=== PATIENT | female | born 1985 | race Caucasian/White ===

== ENCOUNTER 2020-01-30 20:22 | Emergency (ER) | payer MEDICAID, SELFPAY ==
[2020-01-30 20:35] VITALS: BP 111/69; PULSE 81; RESP 16; TEMP 36.6; O2SAT 98; BMI 26.9
[2020-01-30 21:00] LABS: Microscopic, Urine URINE MICROSCOPIC (MICROSCOPIC)
[2020-01-30 21:09] LABS: Basophils # 0.1 K/mm3 (0-0.2); Basophils % 0.9 % (0.1-2.0); Eosinophils # 0.7 K/mm3 (0.0-0.4); Hematocrit 37.2 % (37.0-47.0); Mean Corpuscular Hemoglobin 33.4 pg (27.0-31.2); Mean Corpuscular Volume 95.5 fl (81-99); Mean Platelet Volume 8.4 fl (7.4-10.4); Monocytes # 0.4 K/mm3 (0.1-1.0); Monocytes % 4.5 % (1.7-9.3); Neutrophils # 3.9 K/mm3 (1.8-7.8); Neutrophils % 48.6 % (37.0-80.0); Platelet Count 239 K/mm3 (142-424); Red Blood Count 3.89 M/mm3 (4.20-5.40); Red Cell Distribution Width 12.6 % (11.5-17.5); White Blood Count 8.1 K/mm3 (4.8-10.8)
[2020-01-30 21:12] LABS: Alanine Aminotransferase 16 U/L (12-78); Albumin Level 4.6 g/dl (3.5-5.0); Albumin/Globulin Ratio 1.4 (1.1-1.8); Alkaline Phosphatase 51 U/L (38-126); Anion Gap 10.8 mEq/L (5-15); Aspartate Amino Transferase 27 U/L (14-36); Bilirubin,Total 0.2 mg/dl (0.2-1.3); Blood Urea Nitrogen 9 mg/dl (7-17); Calcium 9.2 mg/dl (8.4-10.2); Carbon Dioxide 26 mmol/L (22.0-30.0); Chloride 104 mmol/L (98-107); Creatinine Clearance Estimated 122 mL/min (50-200); Estimated Glomerular Filt Rate 95 ml/min (>60); GFR (African American) 115 ML/MIN (>60); Globulin 3.2 g/dL (1.3-3.2); Glucose 123 mg/dl (74-100); Potassium 3.8 mmoL/L (3.5-5.1); Sodium 137 mmol/L (136-145); Total Protein,Serum 7.8 g/dl (6.3-8.2)
[2020-01-30 21:18] LABS: C-Reactive Protein 0.8 mg/L (0-4)
[2020-01-30 21:20] LABS: Appearance,Urine SL CLOUDY (Clear); Bilirubin,Urine Negative (Negative); Blood, Urine 1+ (Negative); Color,Urine YELLOW (Yellow); Glucose,Urine (UA) Negative (Negative); Ketones,Urine TRACE (Negative); Leukocyte Esterase,Urine 1+ (Negative); Nitrate,Urine Negative (Negative); Protein,Urine Negative (Negative); Specific Gravity, Urine >= 1.030 (1.005-1.030); Urobilinogen,Urine 0.2 EU/dl (0.2)
[2020-01-30 21:23] LABS: Urine Pregnancy, HCG Qual. Negative (Negative)
[2020-01-30 21:28] LABS: Coronavirus 19 IgG Antibody Negative (Negative); Coronavirus 19 IgM Antibody Negative (Negative)
[2020-01-30 21:32] LABS: Erythrocyte Sedimentation Rate 19 mm/hr (0-20); Free Thyroxine Index 2.6 ug/dL (5.93-13.13); T4 (Thyroxine) 8.5 ug/dl (5.53-11.0); Triiodothryronine (T3) Uptake 30 % (23.5-40.5)
[2020-01-30 21:45] LABS: Thyroid Stimulating Hormone 2.31 uIU/mL (0.465-4.68)
--- NOTE | 2020-01-30 22:18 | HMH.EDGENADL ---
ED Disposition Clinical Impression: UTI (urinary tract infection) Qualifiers: Urinary tract infection type: site unspecified Hematuria presence: without hematuria Qualified Code(s): N39.0 - Urinary tract infection, site not specified Disposition: Home, Self-Care Condition on Discharge: Good Instructions: DI for Skin Abscess Additional Instructions: use meds and see pcp for follow up Prescriptions: cephALEXin [Keflex 500mg Cap] 500 mg PO TID #30 cap Prescription Printed Referrals: Amilcar Carlos MD [Primary Care Provider] - - Critical Care Critical Care Time: No Attestation: On 01/30/20, the high probability of a clinically significant, sudden or life threatening deterioration of the following system(s) required my full and direct attention, intervention and personal management. The time I documented below is in addition to time spent performing reported procedures but includes the following listed in this critical care notation. Medical Decision Making - Medical Records Medical records reviewed: Yes: I reviewed the patient's medical records. - Masoud Inquiry Pt receiving controlled substance: No Vital Signs: 01/30/20 20:35 Temperature 97.8 F Temperature Source Oral Pulse Rate [Right Brachial] 81 Respiratory Rate 16 Blood Pressure [Right Arm] 111/69 Blood Pressure Mean [Right Arm] 83 Blood Pressure Source [Right Arm] Automatic Cuff Blood Pressure Position [Right Arm] Sitting 02 Sat by Pulse Oximetry 98 Oxygen Delivery Method Room Air - Lab Data Lab results reviewed: Yes: I reviewed the patient's lab results. Lab Results 01/30/20 20:40: WBC 8.1, RBC 3.89 L, Hgb 13.0, Hct 37.2, MCV 95.5, MCH 33.4 H, MCHC 35.0, RDW 12.6, Plt Count 239, MPV 8.4, Neut % (Auto) 48.6, Lymph % (Auto) 37.0, [place] % (Auto) 4.5, Eos % (Auto) 9.0, Baso % (Auto) 0.9, Neut # (Auto) 3.9, Lymph # (Auto) 3.0, [place] # (Auto) 0.4, Eos # (Auto) 0.7 H, Baso # (Auto) 0.1 01/30/20 20:40: Urine HCG, Qual Negative 01/30/20 20:40: Sodium 137, Potassium 3.8, Chloride 104, Carbon Dioxide 26, Anion Gap 10.8, BUN 9, Creatinine 0.70, Estimated Creat Clear 122, Estimated GFR 95, Est GFR ( Amer) 115, Glucose 123 H, Calcium 9.2, Total Bilirubin 0.2, AST 27, ALT 16, Alkaline Phosphatase 51, C-Reactive Protein 0.8, Total Protein 7.8, Albumin 4.6, Globulin 3.2, Albumin/Globulin Ratio 1.4 01/30/20 20:40: TSH 2.31, Free T4 Index 2.6 L, Thyroxine (T4) 8.5, T3 Uptake 30 01/30/20 20:40: ESR 19 01/30/20 20:46: SARS-CoV-2 IgG Ab (Rapid) Negative, SARS-CoV-2 IgM Ab (Rapid) Negative 01/30/20 20:49: Urine Color Yellow, Urine Appearance Sl cloudy, Urine pH 5.0, Ur Specific [place] >= 1.030, Urine Protein Negative, Urine Glucose (UA) Negative, Urine Ketones Trace, Urine Blood 1+, Urine Nitrate Negative, Urine Bilirubin Negative, Urine Urobilinogen 0.2, Ur Leukocyte Esterase 1+ A, Urine RBC 5-10, Urine WBC 10-20, Ur Squamous Epith Cells 5-10 Result diagrams: 01/30/20 20:40 01/30/20 20:40 Orders (Tests/Meds): ORDERS Category Date Time Status Urine Culture Stat Micro 01/30/20 20:49 Received General Adult HPI - General Chief complaint: Skin/Abscess/Foreign Body Stated complaint: retaining fluid Time Seen by Provider: 01/30/20 20:40 Mode of Arrival: Family Vehicle Source of Information: Patient, Medical Record Limitations: No Limitations Description of Symptoms (Recalled from ER Triage Doc. by RN): feels like she is swollen all over her body. wants to be evaluated. no previous history - History of Present Illness HPI narrative: pt concerned about possible swelling in abd - no pain - no other c/o Onset (ago): day(s) Location: abdomen Severity: moderate Associated symptoms: denies other symptoms Treatments prior to arrival: none - Related Data Previous Rx's Medication Instructions Recorded cephALEXin [Keflex 500mg Cap] 500 mg PO TID #30 cap 01/30/20 Allergies Allergy/AdvReac Type Severity Reaction Status Date / Time NO ABA
[2020-01-30 22:34] VITALS: BP 119/74; PULSE 73; RESP 15; TEMP 36.7; O2SAT 98
== END 2020-01-30 22:44 | disposition home or self-care (01) ==
PROVIDERS: Emergency Provider Emergency Medicine; PCP Family Medicine
DX: N30.00 Acute cystitis without hematuria (principal)
CPT/HCPCS: 80053; 81001; 81025; 84436; 84443; 84479; 85025; 85651; 86140; 86328; 87086; 99282

== ENCOUNTER 2020-05-13 16:14 | Emergency (ER) | payer MEDICAID, SELFPAY ==
[2020-05-13 16:16] VITALS: BP 136/71; PULSE 64; RESP 18; TEMP 36.7; O2SAT 100; BMI 26.5
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
--- NOTE | 2020-05-13 16:42 | PC.NURSE ---
Pt to rad.
[2020-05-13 19:01] VITALS: BP 132/85; PULSE 87; RESP 18; TEMP 36.8; O2SAT 100
== END 2020-05-13 19:02 | disposition home or self-care (01) ==
PROVIDERS: Emergency Provider Emergency Medicine; PCP Family Medicine
DX: S16.1XXA Strain of muscle, fascia and tendon at neck level, initial encounter (principal); S09.90XA Unspecified injury of head, initial encounter; V48.0XXA Car driver injured in noncollision transport accident in nontraffic accident, initial encounter; Y92.488 Other paved roadways as the place of occurrence of the external cause
CPT/HCPCS: 70450; 72125; 72128; 99282

== ENCOUNTER 2020-06-10 09:28 | Emergency (ER) | payer MEDICAID, SELFPAY ==
[2020-06-10 09:55] VITALS: BP 122/84; PULSE 66; RESP 18; TEMP 37.1; O2SAT 99; BMI 26.5
--- NOTE | 2020-06-10 10:06 | HMH.EDUTC ---
[facility] Disposition Clinical Impression: Dental abscess Disposition: Home, Self-Care Condition on Discharge: Good Instructions: Tooth Abscess, Amoxicillin and Clavulanic Acid Additional Instructions: Start antibiotic and take as prescribed Over the counter Motrin may help with discomfort Return if needed Call Dentist office on Friday for appointment Straight to ER if any life threatening symptoms Prescriptions: Amoxicillin/Potassium Clav [Augmentin 875-125 Tablet] 1 tab PO Q12H 7 Days #14 tab Transmission Status: Pending to [id number] Referrals: Amilcar Carlos MD [Primary Care Provider] - Forms: Work/School Release Time of Disposition: 10:13 Medical Decision Making - Masoud Inquiry Pt receiving controlled substance: No Masoud was queried for this patient: No Vital Signs: 06/10/20 09:55 Temperature 98.7 F Temperature Source Oral Pulse Rate [Radial] 66 Respiratory Rate 18 Blood Pressure [Right Arm] 122/84 Blood Pressure Mean [Right Arm] 96 Blood Pressure Source [Right Arm] Automatic Cuff Blood Pressure Position [Right Arm] Sitting 02 Sat by Pulse Oximetry 99 Oxygen Delivery Method Room Air [facility] HPI - General Stated complaint: right size face swollen possible abcess Time Seen by Provider: 06/10/20 10:06 Mode of Arrival: Ambulatory Source of Information: Patient Limitations: No Limitations Description of Symptoms (Recalled from Triage Doc. by RN): abcessed tooth x 2 months HEENT Symptoms (Recalled from RN notes): Yes Resp Symptoms (Recalled from RN notes): No Skin Symptoms (Recalled from RN notes): No MS Symptoms (Recalled from RN notes): No Functional Status (Recalled from RN notes): wnl - History of Present Illness Provider Complaint: Patient state that she has had a bad tooth States that she noticed over the last couple of days it was starting to act up States that today she woke up and the right side of her jaw/face was swollen and she knew she had an abcessed tooth and it is the weekend so she couldnt get into the dentist - Related Data Previous Rx's Medication Instructions Recorded cephALEXin [Keflex 500mg Cap] 500 mg PO TID #30 cap 01/30/20 Amoxicillin/Potassium Clav 1 tab PO Q12H 7 Days #14 tab 06/10/20 [Augmentin 875-125 Tablet] Allergies Allergy/AdvReac Type Severity Reaction Status Date / Time NO KNOWN ALLERGIES Allergy Uncoded 07/15/17 15:25 - Worker's Comp Is this a Worker's Comp case?: No [facility] History - Hepatitis A Screen Drug use history?: No High risk sexual behaviors?: No History of sexually transmitted infection?: No Currently employed?: No Childcare worker?: No Do you have indoor plumbing?: Yes Do you have electricity?: Yes Attestation statement:: This patient has been screened for Hepatitis A risk factors. I have reviewed the patient's past medical history: Yes - Social History Alcohol Intake: never Occupational Status: other Housing: house ROS Obtained: Yes All systems reviewed & no additional complaints, Yes Systems reviewed as appropriate & no additional complaints - Constitutional Constitutional: Reports system reviewed and no additional complaints, except as docu - ENT Ears, Nose, Mouth, and Throat: Reports dental pain Physical Exam - General General appearance: alert, in no apparent distress - Expanded ENT Exam Mouth exam: Present: other (multiple decaying teeth noted on right upper jaw area) - Respiratory Respiratory exam: Present: normal lung sounds bilaterally. Absent: respiratory distress - Cardiovascular Cardiovascular exam: Present: regular rate, normal rhythm. Absent: JVD - Abdominal Exam Abdominal exam: Present: soft, normal bowel sounds. Absent: distention, tenderness, guarding - Neurological Exam Neurological exam: Present: alert, oriented X3
[2020-06-10 10:18] VITALS: BP 122/84; PULSE 66; RESP 18; TEMP 37.1; O2SAT 99
== END 2020-06-10 10:19 | disposition home or self-care (01) ==
PROVIDERS: Emergency Provider Nurse Practitioner; PCP Family Medicine
DX: K04.7 Periapical abscess without sinus (principal)
CPT/HCPCS: 99201

== ENCOUNTER 2021-03-22 18:37 | Emergency (ER) | payer MEDICAID, SELFPAY ==
[2021-03-22 21:38] VITALS: BP 134/71; PULSE 76; RESP 18; TEMP 36.8; O2SAT 98; BMI 25.6
[2021-03-22 22:14] LABS: Adenovirus,PCR Not Detected (NotDetected); Bordetella Pertussis Not Detected (NotDetected); Chlamydophila Pneumoniae, PCR Not Detected (NotDetected); Coronavirus 19, PCR Not Detected (NotDetected); Coronavirus 229E Not Detected (NotDetected); Coronavirus NL63 Not Detected (NotDetected); Coronavirus OC43 Not Detected (NotDetected); Coronovirus HKU1,PCR Not Detected (NotDetected); Human Metapneumovirus Not Detected (NotDetected); Influenza A, PCR Not Detected (NotDetected); Influenza AH1, 2009 Not Detected (NotDetected); Influenza AH1, PCR Not Detected (NotDetected); Influenza AH3,PCR Not Detected (NotDetected); Influenza B, PCR Not Detected (NotDetected); Mycoplasma Pneumoniae, PCR Not Detected (NotDetected); Parainfluenza 1, PCR Not Detected (NotDetected); Parainfluenza 2, PCR Not Detected (NotDetected); Parainfluenza 3, PCR Not Detected (NotDetected); Parainfluenza 4, PCR Not Detected (NotDetected); Respiratory Syncytial Virus Not Detected (NotDetected); Rhinovirus/Enterovirus Not Detected (NotDetected)
[2021-03-22 22:15] VITALS: BP 136/75; PULSE 83; RESP 17; TEMP 36.6; O2SAT 98
--- NOTE | 2021-03-22 22:38 | HMH.EDUTC ---
[facility] Disposition Clinical Impression: Close exposure to COVID-19 virus Disposition: Home, Self-Care Condition on Discharge: Good Instructions: DI for COVID-19 (Suspected or Confirmed ), Coronavirus Disease 2019, Preventing the Spread of Coronavirus Discharge Instructions Additional Instructions: *Monitor Temp, Over the counter Motrin or Tylenol as directed/as needed Tylenol every 4 hours and Motrin every 6 hours (as long as your family doctor has told you that you can take it) for fever or pain. and straight to ER if unable to lower temp less than 101.0 after medication given Follow up IMMEDIATELY for new or worsening symptoms or no Noticeable improvement over the next 48-72 hours. 911 for difficulty breathing or swallowing You were tested for today for COVID19 your test result should be back in the next 24-48 hours, you may call to the [facility] to see if your test results are back in the next 48 hours [phone] [facility] hours are 9am-9pm You was given a handout with instructions for Self Quarantine and Self isolation for while you wait on test results and what to do if they are positive If you are positive the Health Dept will be contacting you also Make sure to take your Vitamins Vit. C Vit D and Zinc if you can take them Referrals: Amilcar Carlos MD [Primary Care Provider] - As needed Forms: Work/School Release Time of Disposition: 22:40 Medical Decision Making - Masoud Inquiry Pt receiving controlled substance: No Masoud was queried for this patient: No Vital Signs: 03/22/21 21:38 Temperature 98.2 F Temperature Source Oral Pulse Rate [Right] 76 Respiratory Rate 18 Blood Pressure [Right Arm] 134/71 Blood Pressure Mean [Right Arm] 92 02 Sat by Pulse Oximetry 98 Orders (Tests/Meds): ORDERS Category Date Time Status Full Resp Panel w/COVID ([facility]) Routine Lab 03/22/21 21:45 Received [facility] HPI - General Stated complaint: covid test Time Seen by Provider: 03/22/21 22:38 Mode of Arrival: Family Vehicle Source of Information: Patient Limitations: No Limitations Description of Symptoms (Recalled from Triage Doc. by RN): Patient reports she is here for a COVID test. Denies any symptoms HEENT Symptoms (Recalled from RN notes): No Resp Symptoms (Recalled from RN notes): No Skin Symptoms (Recalled from RN notes): No MS Symptoms (Recalled from RN notes): No Functional Status (Recalled from RN notes): na - History of Present Illness Provider Complaint: Patient states that she wanted to get tested for COVID state that she was recently around someone that tested positive for COVID but she is not having any symptoms - Related Data Previous Rx's Medication Instructions Recorded cephALEXin [Keflex 500mg Cap] 500 mg PO TID #30 cap 01/30/20 Amoxicillin/Potassium Clav 1 tab PO Q12H 7 Days #14 tab 06/10/20 [Augmentin 875-125 Tablet] Allergies Allergy/AdvReac Type Severity Reaction Status Date / Time NO KNOWN ALLERGIES Allergy Uncoded 07/15/17 15:25 - Worker's Comp Is this a Worker's Comp case?: No Is this an [facility] Worker's Comp?: No Is this a [place] Worker's Comp?: No [facility] History - Hepatitis A Screen Drug use history?: No High risk sexual behaviors?: No History of sexually transmitted infection?: No Currently employed?: No Childcare worker?: No Do you have indoor plumbing?: Yes Do you have electricity?: Yes Attestation statement:: This patient has been screened for Hepatitis A risk factors. I have reviewed the patient's past medical history: Yes - Social History Alcohol Intake: never Occupational Status: other Housing: house ROS Obtained: Yes All systems reviewed & no additional complaints, Yes Systems reviewed as appropriate & no additional complaints - Constitutional Constitutional: Reports system reviewed and no additional complaints, except as docu, Denies body ache, Denies chills, Denies fever(s) - ENT Ears, Nose, Mouth, and Throat: Reports system reviewed and no elvira
== END 2021-03-22 22:50 | disposition home or self-care (01) ==
PROVIDERS: Emergency Provider Nurse Practitioner; PCP Family Medicine
DX: Z20.822 Contact with and (suspected) exposure to COVID-19 (principal)
CPT/HCPCS: 87581; 87633; 87798; 99202; G0463

== ENCOUNTER 2022-01-05 12:23 | Emergency (ER) | payer MEDICAID, SELFPAY ==
[2022-01-05 12:53] VITALS: BMI 25.6
--- NOTE | 2022-01-05 12:54 | XR_ITS ---
PROCEDURE INFORMATION: Exam: XR Chest Exam date and time: 01/05/2022 1:37 PM Age: 36 years old Clinical indication: Cough and shortness of breath; Additional info: Cough, SOB TECHNIQUE: Imaging protocol: XR of the chest. Views: 2 views. COMPARISON: CT THORACIC SPINE WO CON 05/13/2020 4:55 PM FINDINGS: Airway: Patent Lungs: Unremarkable. No consolidation. Pleural spaces: Unremarkable. No pleural effusion. No pneumothorax. Heart/Mediastinum: Unremarkable. No cardiomegaly. Bones/joints: No acute skeletal abnormality or aggressive osseous lesion. IMPRESSION: No acute findings.
[2022-01-05 12:58] VITALS: BP 130/85; PULSE 96; RESP 16; TEMP 36.8; O2SAT 97; BMI 25.6
[2022-01-05 13:00] LABS: Coronavirus 19, PCR Not Detected (NotDetected); Influenza A, PCR Not Detected (NotDetected); Influenza B, PCR Not Detected (NotDetected)
--- NOTE | 2022-01-05 13:05 | HMH.EDGENADL ---
ED Disposition Clinical Impression: Viral upper respiratory infection Right otitis media Qualifiers: Otitis media type: suppurative Chronicity: acute Recurrence: not specified as recurrent Spontaneous tympanic membrane rupture: without spontaneous rupture Qualified Code(s): H66.001 - Acute suppurative otitis media without spontaneous rupture of ear drum, right ear Sinusitis Qualifiers: Sinusitis location: unspecified location Chronicity: acute Recurrence: not specified as recurrent Qualified Code(s): J01.90 - Acute sinusitis, unspecified Disposition: Home, Self-Care Condition on Discharge: Good Instructions: DI for Sinusitis, DI for Middle Ear Infection-Adult, DI for Viral Upper Respiratory Infection -- Adult Additional Instructions: Amoxicillin as prescribed. Tessalon as needed for cough. Ibuprofen or Tylenol as needed for pain or fevers. Follow-up with primary care provider if not improving in 4 to 5 days. Prescriptions: Amoxicillin [Amoxicillin 500mg Cap] 500 mg PO TID #30 cap Transmission Status: Pending to [facility] Benzonatate [Benzonatate 100mg cap] 100 mg PO TIDP PRN #15 cap PRN Reason: Cough Transmission Status: Pending to [facility] Referrals: Provider,Referral, [Referring] - - Critical Care Critical Care Time: No Attestation: On 01/05/22, the high probability of a clinically significant, sudden or life threatening deterioration of the following system(s) required my full and direct attention, intervention and personal management. The time I documented below is in addition to time spent performing reported procedures but includes the following listed in this critical care notation. Medical Decision Making - Masoud Inquiry Pt receiving controlled substance: No Vital Signs: 01/05/22 12:58 Temperature 98.3 F Temperature Source Oral Pulse Rate [Left Radial] 96 H Respiratory Rate 16 Blood Pressure [Right Arm] 130/85 Blood Pressure Mean [Right Arm] 100 02 Sat by Pulse Oximetry 97 Oxygen Delivery Method Room Air - Lab Data Lab Results 01/05/22 12:39: SARS-CoV-2 (PCR) Not detected, Influenza A Untype (PCR) Not detected, Influenza Type B (PCR) Not detected 01/05/22 13:22: Urine HCG, Qual Negative Orders (Tests/Meds): ORDERS Category Date Time Status Chest XR 2 view (NOT portable) [XR chest 2V] Stat Exams 01/05/22 12:54 Taken - Radiology Data #1 Image(s): Chest Image Reviewed: Yes I reviewed the patient's radiology image Preliminary Findings: Normal/NAD General Adult HPI - General Chief complaint: Upper Respiratory Infection Stated complaint: h/a, cough, right ear pain/difficulty hearing Time Seen by Provider: 01/05/22 13:17 Mode of Arrival: Ambulatory Limitations: No Limitations Description of Symptoms (Recalled from ER Triage Doc. by RN): pt to ed c/o productive cough, head congestion, and right ear pain x1 week. - History of Present Illness HPI narrative: States she has been sick for 1 week. She has sinus drainage and congestion, a bad cough. Her right ear popped couple of days ago and after that it was muffled for a while, but now the muffling has resolved. No known exposure to COVID-19. She had COVID-19 last March. She has not had the vaccine. - Related Data Previous Rx's Medication Instructions Recorded cephALEXin [Keflex 500mg Cap] 500 mg PO TID #30 cap 01/30/20 Amoxicillin/Potassium Clav 1 tab PO Q12H 7 Days #14 tab 06/10/20 [Augmentin 875-125 Tablet] Amoxicillin [Amoxicillin 500mg 500 mg PO TID #30 cap 01/05/22 Cap] Benzonatate [Benzonatate 100mg 100 mg PO TIDP PRN #15 cap 01/05/22 cap] Allergies Allergy/AdvReac Type Severity Reaction Status Date / Time NO KNOWN ALLERGIES Allergy Uncoded 07/15/17 15:25 [facility] History - Hepatitis A Screen Attestation statement:: This patient has been screened for Hepatitis A risk factors. I have reviewed the patient's past medical hist
[2022-01-05 13:37] LABS: Urine Pregnancy, HCG Qual. Negative (Negative)
--- NOTE | 2022-01-05 13:45 | PC.NURSE ---
pt to radiology via wheelchair
[2022-01-05 14:02] VITALS: BP 128/74; PULSE 90; RESP 16; TEMP 36.8; O2SAT 98
== END 2022-01-05 14:04 | disposition home or self-care (01) ==
PROVIDERS: Emergency Provider Emergency Medicine; PCP Family Medicine
DX: H66.001 Acute suppurative otitis media without spontaneous rupture of ear drum, right ear (principal); J01.90 Acute sinusitis, unspecified; J06.9 Acute upper respiratory infection, unspecified; Z20.822 Contact with and (suspected) exposure to COVID-19
CPT/HCPCS: 71046; 81025; 99283; C9803; U0003; U0005

== ENCOUNTER 2022-02-03 13:22 | Emergency (ER) | payer MEDICAID, SELFPAY ==
[2022-02-03 13:25] VITALS: BP 119/73; PULSE 63; RESP 17; TEMP 36.8; O2SAT 99; BMI 25.2
[2022-02-03 13:41] VITALS: BP 119/73; PULSE 63; RESP 17; TEMP 36.8; O2SAT 99
--- NOTE | 2022-02-03 13:46 | HMH.EDUTC ---
[facility] [place] Clinical Impression: Close exposure to COVID-19 virus Sinusitis Qualifiers: Sinusitis location: maxillary Chronicity: acute Recurrence: non-recurrent Qualified Code(s): J01.00 - Acute maxillary sinusitis, unspecified Disposition: Home, Self-Care Condition on Discharge: Good Instructions: DI for Sinusitis, Preventing the Spread of Coronavirus Discharge Instructions Additional Instructions: Start antibiotic patient to take as ordered for a full length of time even if you feel better. Sinus infections do not get better overnight. It may take 2-3 days to notice much improvement so be sure to use conservative measures as discussed for symptoms. Flonase 1 spray each nostril daily to help with nasal congestion, sinus and ear pressure/information Increase fluids Humidifier/vaporizer as needed Tylenol and ibuprofen as needed for fever or pain. If symptoms do not improve or get worse return or be seen in the ER Follow-up with primary care this week Prescriptions: Fluticasone Propionate [Flonase 50mcg nasal spray 16gm] 1 spr NS DAILY 14 Days #9.9 ml Transmission Status: Pending to [id number] Azithromycin [Zithromax 250mg tab] 250 mg PO DIRECTED #6 tab Transmission Status: Pending to [id number] Referrals: Provider,Referral, MD [Primary Care Provider] - Time of Disposition: 13:49 Medical Decision Making - Masoud Inquiry Pt receiving controlled substance: No Vital Signs: 02/03/22 13:25 02/03/22 13:41 Temperature 98.2 F 98.2 F Temperature Source Oral Pulse Rate 63 Pulse Rate [Right Brachial] 63 Respiratory Rate 17 17 Blood Pressure 119/73 Blood Pressure [Right Arm] 119/73 Blood Pressure Mean [Right Arm] 88 Blood Pressure Source [Right Arm] Automatic Cuff Blood Pressure Position [Right Arm] Sitting 02 Sat by Pulse Oximetry 99 Oxygen Delivery Method Room Air Orders (Tests/Meds): ORDERS Category Date Time Status Covid-19 Nasal PCR ([facility]) Routine Lab 02/03/22 13:30 [place] [facility] [place] - General Chief complaint: [facility] Stated complaint: fever, headache, body aches Time Seen by Provider: 02/03/22 13:46 Mode of Arrival: Ambulatory Source of Information: Patient Limitations: No Limitations Description of Symptoms (Recalled from Triage Doc. by RN): PATIENT C/O FEVER, HEADACHE, AND CHILLS SINCE FRIDAY NIGHT. RECENTLY EXPOSED TO COVID HEENT Symptoms (Recalled from RN notes): Yes Resp Symptoms (Recalled from RN notes): No Skin Symptoms (Recalled from RN notes): No MS Symptoms (Recalled from RN notes): No Functional Status (Recalled from RN notes): WNL - History of Present Illness Provider Complaint: 36 yr old female presnets for fever,boucher,chills,body aches, green nasal and coughing up green sputu since friday. has been exposed to covid - Related Data Home Medications Medication Instructions Recorded Confirmed Sertraline HCl [Zoloft 100mg 100 mg PO BID 02/03/22 02/03/22 tablet] Previous Rx's Medication Instructions Recorded Azithromycin [Zithromax 250mg 250 mg PO DIRECTED #6 tab 02/03/22 tab] Fluticasone Propionate [Flonase 1 spr NS DAILY 14 Days #9.9 ml 02/03/22 50mcg nasal spray 16gm] Allergies Allergy/AdvReac Type Severity Reaction Status Date / Time No Known Allergies Allergy Verified 02/03/22 13:40 - Worker's Comp Is this a Worker's Comp case?: No [facility] History - Hepatitis A Screen Attestation statement:: This patient has been screened for Hepatitis A risk factors. I have reviewed the patient's past medical history: Yes - Social History Alcohol Intake: never Occupational Status: other Housing: house ROS Obtained: Yes Systems reviewed as appropriate & no additional complaints - Constitutional Constitutional: Reports system reviewed and no additional complaints, except as docu, Reports body ache, Reports chills, Reports fever(s) - Eyes Eyes: Reports system reviewed and no ad
== END 2022-02-03 14:03 | disposition home or self-care (01) ==
PROVIDERS: Emergency Provider Nurse Practitioner Family
DX: U07.1 COVID-19 (principal); J01.00 Acute maxillary sinusitis, unspecified
CPT/HCPCS: 99212; C9803; G0463; U0003; U0005

== ENCOUNTER 2022-03-20 15:35 | Emergency (ER) | payer MEDICAID, SELFPAY ==
[2022-03-20 17:06] VITALS: BP 115/79; PULSE 63; RESP 16; TEMP 36.9; O2SAT 98; BMI 24.7
--- NOTE | 2022-03-20 17:10 | EXP.UTC ---
Discharge Plan Disposition Patient Disposition: Home, Self-Care Condition: Good Prescriptions Prescriptions: No Action sertraline 100 MG tablet 100 mg PO BID azithromycin 250 MG tablet 250 mg PO DIRECTED Qty: 6 0RF Rx Instructions: Take two (2) tablets on day #1, then one (1) tablet day #2 thru #5 fluticasone propionate 120 SPR/BOT bottle 1 spr NS DAILY 14 Days Qty: 9.9 0RF Referrals Referrals: Amilcar Carlos MD [Primary Care Provider] - Enter time for follow up Activity Restrictions/Add. Instructions Additional Instructions/Restrictions: *Monitor Temp, Over the counter Motrin or Tylenol as directed/as needed Tylenol every 4 hours and Motrin every 6 hours (as long as your family doctor has told you that you can take it) for fever or pain. and straight to ER if unable to lower temp less than 101.0 after medication given *Warm salt water gargles may help to soothe the throat *Throat Lozenges? *Warm fluids like tea with honey may help to soothe the throat? *Sleep elevated *Humidifier/Vaporizer Your throat swab was sent for culture. Those results are typically sent to your primary care. Be sure to follow up in 2-3 days with your family doctor/primary care physician if no improvement so they can review those result and treat if necessary. If you don?t have a primary care doctor, I recommend you get one but in the mean time, you will have to return to a walk in clinic Follow up IMMEDIATELY for new or worsening symptoms or no Noticeable improvement over the next 48-72 hours. 911 for difficulty breathing or swallowing You were tested for today for COVID19 your test result should be back in the next 24-48 hours, you may check your result on the [facility] My Health Portal Make sure to take your Vitamins Vit. C Vit D and Zinc if you can take them Clinical Impressions Clinical Impression: Viral upper respiratory tract infection Stand Alone Forms Stand Alone Forms: Work/School Release Instructions Patient Instructions: DI for Viral Syndrome, Sore Throat Discharge ED Provider: Maisha Alvarez [facility] [place] HPI General Stated complaint: exposed to covid sore throat TAMELA castro Time Seen by Provider: 03/20/22 17:04 Mode of Arrival: Ambulatory Source of Information: Patient Limitations: No Limitations Description of Symptoms (Recalled from Triage Doc. by RN): patient comes in with complaints of headache, sore throat, fatigue, chills. symptoms began last night. HEENT Symptoms (Recalled from RN notes): Yes Resp Symptoms (Recalled from RN notes): Yes Skin Symptoms (Recalled from RN notes): No MS Symptoms (Recalled from RN notes): No Functional Status (Recalled from RN notes): n/a History of Present Illness Provider Complaint: Patient states that she was recently exposed to COVID States that yesterday She started feeling bad State that she has been having sore throat, body aches, chills, headache and nasal congestion Statse that she feels like it is bad allergies or strep throat so she came in Related Data Home Medications Medication Instructions Recorded Confirmed sertraline 100 mg tablet 100 mg PO BID Anxiety 02/03/22 02/03/22 Previous Rx's Medication Instructions Recorded azithromycin 250 mg tablet 250 mg PO DIRECTED #6 tabs 02/03/22 fluticasone propionate 50 1 spr intranasal DAILY 14 days 02/03/22 mcg/actuation nasal #9.9 mL spray,suspension Allergies Allergy/AdvReac Type Severity Reaction Status Date / Time No Known Allergies Allergy Verified 03/20/22 17:09 Worker's Comp Is this a Worker's Comp case?: No PFSH PFSH Social History (Updated 03/20/22 @ 17:14 by Chan Lopez RN) Smoking Status: Never smoker alcohol intake: never current occupational status: other housing: house ROS Obtained: Yes All systems reviewed & no additional complaints except as documented and Yes Systems reviewed as appropriate & no additional complaints except as documented
[2022-03-20 17:14] LABS: UTC Strep Screen (Rapid) Negative (Negative)
[2022-03-20 17:29] VITALS: BP 115/79; PULSE 63; RESP 16; TEMP 36.9
== END 2022-03-20 17:31 | disposition home or self-care (01) ==
PROVIDERS: Emergency Provider Nurse Practitioner; PCP Family Medicine
DX: J06.9 Acute upper respiratory infection, unspecified (principal); J02.9 Acute pharyngitis, unspecified; R51.9 Headache, unspecified; R09.81 Nasal congestion; Z20.822 Contact with and (suspected) exposure to COVID-19
CPT/HCPCS: 87880; 99212; C9803; G0463; U0003; U0005

== ENCOUNTER 2022-06-26 08:04 | Emergency (ER) | payer MEDICAID, SELFPAY ==
[2022-06-26 08:05] VITALS: BP 138/91; PULSE 81; RESP 18; TEMP 37; O2SAT 99; BMI 25.2
[2022-06-26 08:17] LABS: Coronavirus 19, PCR Not Detected (NotDetected); Influenza B, PCR Not Detected (NotDetected)
[2022-06-26 08:31] VITALS: BP 106/63; PULSE 87; O2SAT 98
--- NOTE | 2022-06-26 08:36 | HMH.EDGENADL ---
Discharge Plan Disposition Patient Disposition: Home, Self-Care Condition: Good Prescriptions Prescriptions: No Action sertraline 100 MG tablet 100 mg PO BID azithromycin 250 MG tablet 250 mg PO DIRECTED Qty: 6 0RF Rx Instructions: Take two (2) tablets on day #1, then one (1) tablet day #2 thru #5 fluticasone propionate 120 SPR/BOT bottle 1 spr NS DAILY 14 Days Qty: 9.9 0RF Referrals Follow up/Referrals: Amilcar Carlos MD [Primary Care Provider] - See instructions Activity Restrictions/Add. Instructions Additional Instructions/Restrictions: ADDITIONAL INSTRUCTIONS FOR INFLUENZA (FLU): Rest, drink plenty of fluids. Tylenol or Ibuprofen for fever and/or aches and pains. Monitor your symptoms. IF YOU HAVE AN EMERGENCY WARNING SIGN (INCLUDING TROUBLE BREATHING), SEEK EMERGENCY MEDICAL CARE IMMEDIATELY. Influenza Isolation: People with influenza should isolate for 5 days starting at the onset of symptoms. Then if they are asymptomatic (no symptoms) or their symptoms are resolving (without fever for 24 hours), you may end isolation. What to do: Stay in a separate room from other household members, if possible. Use a separate bathroom, if possible. Avoid contact with other members of the household and pets. Don?t share personal household items, like cups, towels, and utensils. Wear a mask when around other people if able. Clinical Impressions Clinical Impression: Influenza A Stand Alone Forms Stand Alone Forms: Work/School Release Instructions Patient Instructions: DI for Influenza -- Adult Discharge ED Provider: Cristóbal Rojas General Adult HPI General Chief complaint: Upper Respiratory Infection Stated complaint: body aches, chills, cough Time Seen by Provider: 06/26/22 08:31 Mode of Arrival: Ambulatory Source of Information: Patient Limitations: No Limitations Description of Symptoms (Recalled from ER Triage Doc. by RN): c/o aching, fever, chills, sweats and cough since Friday night History of Present Illness HPI narrative: 3-day history of fever, body aches, cough. Nausea but no vomiting or diarrhea. Exposed to multiple coworkers with flu. No COVID exposure to her knowledge. She has not had flu vaccine. Related Data Home Medications Medication Instructions Recorded Confirmed sertraline 100 mg tablet 100 mg PO BID Anxiety 02/03/22 02/03/22 Previous Rx's Medication Instructions Recorded azithromycin 250 mg tablet 250 mg PO DIRECTED #6 tabs 02/03/22 fluticasone propionate 50 1 spr intranasal DAILY 14 days 02/03/22 mcg/actuation nasal #9.9 mL spray,suspension Allergies Allergy/AdvReac Type Severity Reaction Status Date / Time No Known Allergies Allergy Verified 03/20/22 17:09 [facility] Social History (Updated 03/20/22 @ 17:23 by Maisha Alvarez APRN) Smoking Status: Never smoker alcohol intake: never current occupational status: other Travel in the last 8 weeks: None housing: house ROS Obtained: Yes Systems reviewed as appropriate & no additional complaints except as documented Constitutional Constitutional: Reports body ache, Reports chills and Reports fever(s) ENT Ears, Nose, Mouth, and Throat: Denies nasal discharge and Denies sore throat Cardiovascular Cardiovascular: Denies chest pain Respiratory Respiratory: Reports shortness of breath (slight, from coughing) Gastrointestinal Gastrointestingal: Reports nausea; Denies diarrhea or vomiting Physical Exam General General appearance: alert and in no apparent distress Eye Eye exam: Absent conjunctival injection ENT ENT exam: Present normal oropharynx, mucous membranes moist and TM's normal bilaterally Neck Neck exam: Present normal inspection and full ROM Chest Chest inspection: Present normal inspection and symmetric chest wall rise Respiratory Respiratory exam: Present normal lung sounds bilaterally; Absent respiratory distress or wheezes Cardiovascular Cardiov
[2022-06-26 08:41] LABS: Influenza A, PCR Detected (NotDetected)
[2022-06-26 09:17] VITALS: BP 126/75; PULSE 91; RESP 18; TEMP 37; O2SAT 97
== END 2022-06-26 09:18 | disposition home or self-care (01) ==
PROVIDERS: Emergency Provider Emergency Medicine; PCP Family Medicine
DX: J10.1 Influenza due to other identified influenza virus with other respiratory manifestations (principal)
CPT/HCPCS: 99212; C9803; G0463; U0003; U0005

== ENCOUNTER 2022-10-05 11:18 | Emergency (ER) | payer SELFPAY ==
[2022-10-05 11:19] VITALS: BP 125/74; PULSE 86; RESP 17; TEMP 36.6; O2SAT 99; BMI 26.5
[2022-10-05 11:37] LABS: Coronavirus 19, PCR Not Detected (NotDetected); Influenza A, PCR Not Detected (NotDetected); Influenza B, PCR Not Detected (NotDetected)
--- NOTE | 2022-10-05 11:41 | PC.NURSE ---
ED MD AT BEDSIDE
[2022-10-05 11:48] LABS: Strep Scrn Group A (Rapid) Negative (Negative)
[2022-10-05 12:29] VITALS: BP 125/74; PULSE 86; RESP 16; TEMP 36.6; O2SAT 99
--- NOTE | 2022-10-05 18:18 | HMH.EDGENADL ---
Discharge Plan Disposition Patient Disposition: Home, Self-Care Condition: Good Prescriptions Prescriptions: No Action sertraline 100 MG tablet 100 mg PO BID azithromycin 250 MG tablet 250 mg PO DIRECTED Qty: 6 0RF Rx Instructions: Take two (2) tablets on day #1, then one (1) tablet day #2 thru #5 fluticasone propionate 120 SPR/BOT bottle 1 spr NS DAILY 14 Days Qty: 9.9 0RF Referrals Follow up/Referrals: Amilcar Carlos MD [Primary Care Provider] - See instructions Activity Restrictions/Add. Instructions Additional Instructions/Restrictions: Your COVID, flu and strep was negative. You likely have some sort of other viral upper respiratory infection. Take tylenol and ibuprofen for pain. If you are still having symptoms in 48 hours you can consider retesting for covid and flu since many times people will test negative falsely in the first few days of illness. Return with concerns.Follow up with your PCP Clinical Impressions Clinical Impression: Viral upper respiratory infection Stand Alone Forms Stand Alone Forms: Work/School Release Instructions Patient Instructions: DI for Viral Upper Respiratory Infection -- Adult Discharge ED Provider: Terrie Ford General Adult HPI General Chief complaint: Upper Respiratory Infection Stated complaint: Sore throat,headache,chills Time Seen by Provider: 10/05/22 11:19 Mode of Arrival: Ambulatory Limitations: No Limitations Description of Symptoms (Recalled from ER Triage Doc. by RN): PT REPORTS BODYACHES AND HEADACHE THAT BEGAN ABOUT 1800 LAST NIGHT History of Present Illness HPI narrative: The patient is an otherwise healthy 37-year-old female who presents with congestion, body aches and headache. She says since last night she has had the symptoms. No cough or shortness of breath. No sore throat. No vomiting or diarrhea. She just feels generally unwell. She also came in with her daughter who has similar symptoms. No known sick contacts. Related Data Home Medications Medication Instructions Recorded Confirmed sertraline 100 mg tablet 100 mg PO BID Anxiety 02/03/22 02/03/22 Previous Rx's Medication Instructions Recorded azithromycin 250 mg tablet 250 mg PO DIRECTED #6 tabs 02/03/22 fluticasone propionate 50 1 spr intranasal DAILY 14 days 02/03/22 mcg/actuation nasal #9.9 mL spray,suspension Allergies Allergy/AdvReac Type Severity Reaction Status Date / Time No Known Allergies Allergy Verified 03/20/22 17:09 [facility] Disclaimer: The information contained in this section may have been updated after the patient was seen, as this information can be updated by other users. Social History (Updated 03/20/22 @ 17:23 by Maisha Alvarez APRN) Smoking Status: Never smoker alcohol intake: never current occupational status: other Travel in the last 8 weeks: None housing: house ROS Obtained: Yes All systems reviewed & no additional complaints except as documented Physical Exam General General appearance: alert and in no apparent distress Head Head exam: atraumatic and normocephalic Eye Eye exam: Present normal appearance, PERRL and EOMI ENT ENT exam: Present normal exam and other Neck Neck exam: Present normal inspection and full ROM Chest Chest inspection: Present normal inspection and symmetric chest wall rise Respiratory Respiratory exam: Present normal lung sounds bilaterally; Absent respiratory distress Cardiovascular Cardiovascular exam: Present regular rate and normal rhythm Abdominal Exam Abdominal exam: Present soft; Absent distention Extremities Exam Extremities exam: Present normal inspection and full ROM Back Exam Back exam: Present normal inspection Neurological Exam Neurological exam: Present alert, oriented X3 and CN II-XII intact Psychiatric Psychiatric exam: Present normal affect Medical Decision Making Masoud Inquiry Pt receiving controlled substance: No Vital Signs:
== END 2022-10-05 12:29 | disposition home or self-care (01) ==
PROVIDERS: Emergency Provider Emergency Medicine; PCP Family Medicine
DX: J06.9 Acute upper respiratory infection, unspecified (principal); Z20.822 Contact with and (suspected) exposure to COVID-19
CPT/HCPCS: 87430; 99283; 99284; C9803; U0003; U0005

== ENCOUNTER 2023-06-02 16:50 | Emergency (ER) | payer OTHER, SELFPAY ==
[2023-06-02 16:50] VITALS: BP 144/79; PULSE 109; RESP 20; TEMP 37; O2SAT 96; BMI 25.6
--- NOTE | 2023-06-02 17:51 | HMH.EDGENADL ---
Discharge Plan Disposition Patient Disposition: Home, Self-Care Prescriptions Prescriptions: New prednisone 20 mg tablet 40 mg PO BID 5 Days Qty: 20 0RF ondansetron 4 mg tablet,disintegrating 4 mg PO Q6H PRN (Reason: nausea and vomiting) Qty: 10 0RF No Action sertraline 100 MG tablet 100 mg PO BID azithromycin 250 MG tablet 250 mg PO DIRECTED Qty: 6 0RF Rx Instructions: Take two (2) tablets on day #1, then one (1) tablet day #2 thru #5 fluticasone propionate 120 SPR/BOT bottle 1 spr NS DAILY 14 Days Qty: 9.9 0RF Referrals Follow up/Referrals: Amilcar Carlos MD [Primary Care Provider] - See instructions Activity Restrictions/Add. Instructions Additional Instructions/Restrictions: Call your family doctor to establish care for this visit to the emergency department and schedule follow-up within 48 hours to ensure improvement. If you have any worsening of your condition or any other concerning signs or symptoms, return to the emergency department or your primary care doctor for further evaluation. Take Tylenol 1000 mg every 6 hours (4 times daily) and ibuprofen 400 mg every 6 hours (4 times daily) as needed with food and water to prevent GI upset and kidney damage. Clinical Impressions Clinical Impression: Acute viral syndrome, Bronchitis Discharge ED Provider: Antoine Rojas General Adult HPI General Chief complaint: Upper Respiratory Infection Stated complaint: RAPP, cough, nausea, body aches Time Seen by Provider: 06/02/23 17:00 Mode of Arrival: Ambulatory Source of Information: Patient Limitations: No Limitations Description of Symptoms (Recalled from ER Triage Doc. by RN): cough,ear pain and sinus headache since Friday night History of Present Illness HPI narrative: Otherwise healthy 37-year female presenting with multiple complaints. Patient states that she had sick contacts with COVID. Daughter became sick 3 days prior to arrival, patient started being sick 1 day prior to arrival. Cough productive of green sputum, palpable fevers, but no objective fevers measured. Taking Tylenol Motrin with significant relief. Patient has also been nauseated without vomiting. Denies abdominal pain, urinary symptoms, vaginal discharge or bleeding, or any other concerns. Related Data Home Medications Medication Instructions Recorded Confirmed sertraline 100 mg tablet 100 mg PO BID Anxiety 02/03/22 02/03/22 Previous Rx's Medication Instructions Recorded azithromycin 250 mg tablet 250 mg PO DIRECTED #6 tabs 02/03/22 fluticasone propionate 50 1 spr intranasal DAILY 14 days 02/03/22 mcg/actuation nasal #9.9 mL spray,suspension ondansetron 4 mg disintegrating 4 mg PO Q6H PRN nausea and 06/02/23 tablet vomiting #10 tabs prednisone 20 mg tablet 40 mg PO BID 5 days #20 tabs 06/02/23 Allergies Allergy/AdvReac Type Severity Reaction Status Date / Time No Known Allergies Allergy Verified 03/20/22 17:09 [facility] Disclaimer: The information contained in this section may have been updated after the patient was seen, as this information can be updated by other users. Social History (Updated 03/20/22 @ 17:23 by Maisha Alvarez APRN) Smoking Status: Current every day smoker alcohol intake: never current occupational status: other Travel in the last 8 weeks: None housing: house ROS Obtained: Yes All systems reviewed & no additional complaints except as documented Physical Exam General General appearance: alert and in no apparent distress Head Head exam: atraumatic and normocephalic Eye Eye exam: Present normal appearance, PERRL and EOMI ENT ENT exam: Present mucous membranes moist Neck Neck exam: Present normal inspection, full ROM and trachea midline Respiratory Respiratory exam: Absent respiratory distress, wheezes, stridor, accessory muscle use or prolonged expiratory phase Cardiovascular Cardiovascular exam: Present normal rhythm Abdominal Exam
[2023-06-02 18:05] VITALS: BP 128/81; PULSE 90; RESP 18; TEMP 37; O2SAT 98
== END 2023-06-02 18:05 | disposition home or self-care (01) ==
PROVIDERS: Emergency Provider Emergency Medicine; PCP Family Medicine
DX: J20.9 Acute bronchitis, unspecified (principal); R11.0 Nausea; B34.9 Viral infection, unspecified; F17.210 Nicotine dependence, cigarettes, uncomplicated; Z20.822 Contact with and (suspected) exposure to COVID-19
CPT/HCPCS: 99283

== ENCOUNTER 2024-05-08 22:29 | Emergency (ER) | payer OTHER, SELFPAY ==
[2024-05-08 22:31] VITALS: BP 147/98; PULSE 81; RESP 18; TEMP 36.6; O2SAT 99; BMI 25.6
--- NOTE | 2024-05-08 22:54 | [facility].EDGENADL ---
Discharge Plan Disposition Patient Disposition: Home, Self-Care Condition: Good Prescriptions Prescriptions: No Action sertraline 100 MG tablet 100 mg PO BID azithromycin 250 MG tablet 250 mg PO DIRECTED Qty: 6 0RF Rx Instructions: Take two (2) tablets on day #1, then one (1) tablet day #2 thru #5 fluticasone propionate 120 SPR/BOT bottle 1 spr NS DAILY 14 Days Qty: 9.9 0RF prednisone 20 mg tablet 40 mg PO BID 5 Days Qty: 20 0RF ondansetron 4 mg tablet,disintegrating 4 mg PO Q6H PRN (Reason: nausea and vomiting) Qty: 10 0RF Referrals Follow up/Referrals: Provider,Referral, MD [Primary Care Provider] - See instructions Activity Restrictions/Add. Instructions Additional Instructions/Restrictions: You were evaluated in the ER and are appropriate for discharge at this time. Drink plenty of water. Follow-up with your primary care doctor in 2 to 3 days. Return to the ER with new, worsening, or otherwise concerning symptoms. Clinical Impressions Clinical Impression: Abdominal discomfort Print Language Print Language: Citizen Of [place] Discharge ED Provider: Antoine Rojas General Adult HPI <Antoine Rojas MD - Last Filed: 05/08/24 22:56> General Chief complaint: Abdominal Pain Stated complaint: Abdominal discomfort Time Seen by Provider: 05/08/24 22:39 Mode of Arrival: Ambulatory Source of Information: Patient Limitations: No Limitations Description of Symptoms (Recalled from ER Triage Doc. by RN): Pt presents to ED for abd discomfort X 1 week. Pt states it's not really a pain, it almost feels like phantom kicking. Pt states she's had a tubal and she's on her period right now so there's no way she's . Pt is just concerned because this feels weird. History of Present Illness HPI narrative: Please note that above description of symptoms, in this electronic medical record under categorization of recalled from ER triage doctor by RN are reflective of an initial nursing assessment, however, is not reflective of my full history and physical exam that was personally taken and clarified. Consequentially, this preceding description of symptoms, which may include the patient's categorized chief complaint in the EMR, do not reflect my personal clinical impression, and the ultimate description of history of present illness and patient stated complaints should be deferred to this section of the note. Unless stated otherwise or congruent with this section of the note, additional signs, symptoms, or incongruence should be interpreted as inaccurate with my clinical impression. Related Data Home Medications ?Medication ?Instructions ?Recorded ?Confirmed sertraline 100 mg tablet 100 mg PO BID Anxiety 02/03/22 02/03/22 Previous Rx's ?Medication ?Instructions ?Recorded azithromycin 250 mg tablet 250 mg PO DIRECTED #6 tabs 02/03/22 fluticasone propionate 50 1 spr intranasal DAILY 14 days 02/03/22 mcg/actuation nasal #9.9 mL spray,suspension ondansetron 4 mg disintegrating 4 mg PO Q6H PRN nausea and 06/02/23 tablet vomiting #10 tabs prednisone 20 mg tablet 40 mg (2 x 20 mg) PO BID 5 days 06/02/23 #20 tabs Allergies Allergy/AdvReac Type Severity Reaction Status Date / Time No Known Allergies Allergy Verified 03/20/22 17:09 [facility] <Antoine Rojas MD - Last Filed: 05/08/24 22:56> [facility] Disclaimer: The information contained in this section may have been updated after the patient was seen, as this information can be updated by other users. Social History (Updated 03/20/22 @ 17:23 by Maisha Alvarez APRN) Smoking Status: Current every day smoker alcohol intake: never current occupational status: other Travel in the last 8 weeks: None housing: house Other Medical History Have you received the Flu Vaccine for this season: No Have you received the Pneumonia Vaccine: No <Antoine Rojas MD - Last Filed: 05/08/24 22:56> ROS Obtained: Yes All systems reviewed & no additional complaints except as documented Physical Exam <Antoine Rojas MD - Last Filed: 05/08/24 22:56> General General appearance: alert Head Head exam: atraumatic and normocephalic Eye Eye exam: Present normal appearance, PERRL and EOMI Neck Neck exam: Present normal inspection, full ROM and trachea midline Respiratory Respiratory exam: Absent respiratory distress, wheezes, stridor, accessory muscle use or prolonged expiratory phase Cardiovascular Cardiovascular exam: Present other (Pulses equal symmetric in upper and lower extremities) Abdominal Exam Abdominal exam: Present soft; Absent distention, tenderness or pulsatile mass Extremities Exam Extremities exam: Absent edema Neurological Exam Neurological exam: Present alert, oriented X3 and CN II-XII intact; Absent motor sensory deficit Skin Skin exam: Present warm and dry; Absent diaphoresis or erythema Medical Decision Making <Antoine Rojas MD - Last Filed: 05/08/24 22:56> Medical Records Medical records reviewed: Yes I reviewed the patient's medical records. Screening: Per USPSTF and CDC recommendations, given the prevalence of disease in our region, it is our hospital?s policy to screen for HIV and viral Hepatitis for all patients aged 18 and over and those with ongoing risk factors. Masoud Inquiry Pt receiving controlled substance: No Masoud was queried for this patient: No Vital Signs: 05/08/24 22:31 Temperature 97.9 F Temperature Source Oral Pulse Rate [Left] 81 Respiratory Rate 18 Blood Pressure [Right Arm] 147/98 H Blood Pressure Mean [Right Arm] 114 02 Sat by Pulse Oximetry 99 Oxygen Delivery Method Room Air Lab Data Lab Results 05/08/24 22:37: WBC 11.4 H, RBC 4.25, Hgb 13.7, Hct 38.7, MCV 91.0, MCH 32.3 H, MCHC 35.5 H, RDW 13.2, Plt Count 279, MPV 8.3, Neut % (Auto) 57.7, Lymph % (Auto) 30.9, [place] % (Auto) 4.7, Eos % (Auto) 5.3, Baso % (Auto) 1.3, Neut # (Auto) 6.5, Lymph # (Auto) 3.5, [place]comb # (Auto) 0.5, Eos # (Auto) 0.6 H, Baso # (Auto) 0.2, Sodium 137, Potassium 3.7, Chloride 105, Carbon Dioxide 24, Anion Gap 11.7, BUN 8, Creatinine 0.70, Estimated Creat Clear 108, Estimated GFR 93, Est GFR ( Amer) 113, Glucose 90, Calcium 9.1, Total Bilirubin 0.4, AST 26, ALT 21, Alkaline Phosphatase 60, Total Protein 8.6 H, Albumin 4.6, Globulin 4.0 H, Albumin/Globulin Ratio 1.2, Lipase 146, HCG, Quant < 2 05/08/24 23:30: Urine Color Yellow, Urine Appearance Slightly cloudy, Urine pH 6.0, Ur Specific [place] >= 1.030, Urine Protein Trace, Urine Glucose (UA) Negative, Urine Ketones Negative, Urine Blood 3+ A, Urine Nitrate Negative, Urine Bilirubin Negative, Urine Urobilinogen 0.2, Ur Leukocyte Esterase Negative, Urine RBC 20-50, Urine WBC None, Ur Squamous Epith Cells Occasional, Urine Bacteria Trace 05/08/24 22:37 05/08/24 22:37 Orders (Tests/Meds): ED MEDICATIONS Generic Name Dose Route Start Last Admin Trade Name Freq PRN Reason Stop Dose Admin Sodium Chloride 8 ml 05/08/24 22:51 Sodium Chloride 0.9% 10ml Vial IV 06/07/24 22:50 NEEDED PRN dilute pepcid Discontinued Medications Generic Name Dose Route Start Last Admin Trade Name Freq PRN Reason Stop Dose Admin Al Hydrox/Mg Hydrox/Simethicone 30 ml 05/08/24 22:51 05/08/24 23:06 Aluminum/Magnesium/Simethicone 30ml Udc PO 05/08/24 22:52 30 ml ONCE ONE Administration Famotidine 20 mg 05/08/24 22:51 05/08/24 23:06 Famotidine 20mg/2ml Vial IV 05/08/24 22:52 20 mg ONCE ONE Administration Ketorolac Tromethamine 15 mg 05/08/24 22:51 05/08/24 23:05 Ketorolac 30mg/Ml Vial IV 05/08/24 22:52 15 mg ONCE ONE Administration ORDERS Category Date Time Status CBC w/Auto Diff [Complete Blood Count Auto Diff] Stat Lab 05/08/24 22:37 Completed CMP [Comprehensive Metabolic Panel] Stat Lab 05/08/24 22:37 Completed HCG,Quantitative Stat Lab 05/08/24 22:37 Completed HIV (1&2) Antibody Rapid Stat Lab 05/08/24 22:37 Received Hep C Ab with Reflex to RNA Stat Lab 05/08/24 22:37 Received Lipase Stat Lab 05/08/24 22:37 Completed UA [Urinalysis and Microscopic] Stat Lab 05/08/24 22:37 Received Urinalysis and Microscopic Routine Lab 05/08/24 23:30 Completed Medical Decision Narrative: This 38-year-old female no relevant medical history presenting with abdominal pain. Patient states that her abdominal pain started about 2 weeks prior to this. On and off. She states that it feels like something is moving across my stomach. Starts in her epigastrium, moved to her left upper quadrant. Not associated with vomiting, diarrhea, constipation, fevers, chills, urinary symptoms, abnormal vaginal discharge or bleeding, or any other concerns. She has tried Tylenol and stomach medicine, to help, nothing in particular has. Able to tolerate p.o. intake without issue. Came in for further evaluation given duration of symptoms. History obtained with patient. On arrival, patient very well-appearing. She is hemodynamically stable, GCS 15, ambulatory without issue. Abdomen is soft, nontender, nondistended. No flank tenderness. No overlying skin changes. No distention. Overall unremarkable physical exam. Differential includes PUD, gastritis, enteritis, gastroenteritis, pancreatitis, SBO, colitis, diverticulitis, nephrolithiasis, UTI, , cholecystitis, choledocholithiasis, appendicitis, hepatitis, torsion, aortic pathology, mesenteric ischemia among others. Prior to laboratory evaluation and disposition, care handed off to oncoming physician. [employer] Machine Operator disclaimer Much of this encounter note is an electronic hall clerk spoken language to printed text. Electronic hall clerk of the spoken language may permit errors. Although I have reviewed the note, some errors may still exist. <Kylee Navas MD - Last Filed: 05/09/24 00:12> Vital Signs: 05/08/24 22:31 Temperature 97.9 F Temperature Source Oral Pulse Rate [Left] 81 Respiratory Rate 18 Blood Pressure [Right Arm] 147/98 H Blood Pressure Mean [Right Arm] 114 02 Sat by Pulse Oximetry 99 Oxygen Delivery Method Room Air Lab Data Lab Results 05/08/24 22:37: WBC 11.4 H, RBC 4.25, Hgb 13.7, Hct 38.7, MCV 91.0, MCH 32.3 H, MCHC 35.5 H, RDW 13.2, Plt Count 279, MPV 8.3, Neut % (Auto) 57.7, Lymph % (Auto) 30.9, [place] % (Auto) 4.7, Eos % (Auto) 5.3, Baso % (Auto) 1.3, Neut # (Auto) 6.5, Lymph # (Auto) 3.5, [place] # (Auto) 0.5, Eos # (Auto) 0.6 H, Baso # (Auto) 0.2, Sodium 137, Potassium 3.7, Chloride 105, Carbon Dioxide 24, Anion Gap 11.7, BUN 8, Creatinine 0.70, Estimated Creat Clear 108, Estimated GFR 93, Est GFR ( Amer) 113, Glucose 90, Calcium 9.1, Total Bilirubin 0.4, AST 26, ALT 21, Alkaline Phosphatase 60, Total Protein 8.6 H, Albumin 4.6, Globulin 4.0 H, Albumin/Globulin Ratio 1.2, Lipase 146, HCG, Quant < 2 05/08/24 23:30: Urine Color Yellow, Urine Appearance Slightly cloudy, Urine pH 6.0, Ur Specific [place] >= 1.030, Urine Protein Trace, Urine Glucose (UA) Negative, Urine Ketones Negative, Urine Blood 3+ A, Urine Nitrate Negative, Urine Bilirubin Negative, Urine Urobilinogen 0.2, Ur Leukocyte Esterase Negative, Urine RBC 20-50, Urine WBC None, Ur Squamous Epith Cells Occasional, Urine Bacteria Trace Orders (Tests/Meds): ED MEDICATIONS Generic Name Dose Route Start Last Admin Trade Name Freq PRN Reason Stop Dose Admin Sodium Chloride 8 ml 05/08/24 22:51 Sodium Chloride 0.9% 10ml Vial IV 06/07/24 22:50 NEEDED PRN dilute pepcid Discontinued Medications Generic Name Dose Route Start Last Admin Trade Name Freq PRN Reason Stop Dose Admin Al Hydrox/Mg Hydrox/Simethicone 30 ml 05/08/24 22:51 05/08/24 23:06 Aluminum/Magnesium/Simethicone 30ml Udc PO 05/08/24 22:52 30 ml ONCE ONE Administration Famotidine 20 mg 05/08/24 22:51 05/08/24 23:06 Famotidine 20mg/2ml Vial IV 05/08/24 22:52 20 mg ONCE ONE Administration Ketorolac Tromethamine 15 mg 05/08/24 22:51 05/08/24 23:05 Ketorolac 30mg/Ml Vial IV 05/08/24 22:52 15 mg ONCE ONE Administration ORDERS Category Date Time Status CBC w/Auto Diff [Complete Blood Count Auto Diff] Stat Lab 05/08/24 22:37 Completed CMP [Comprehensive Metabolic Panel] Stat Lab 05/08/24 22:37 Completed HCG,Quantitative Stat Lab 05/08/24 22:37 Completed HIV (1&2) Antibody Rapid Stat Lab 05/08/24 22:37 Received Hep C Ab with Reflex to RNA Stat Lab 05/08/24 22:37 Received Lipase Stat Lab 05/08/24 22:37 Completed UA [Urinalysis and Microscopic] Stat Lab 05/08/24 22:37 Received Urinalysis and Microscopic Routine Lab 05/08/24 23:30 Completed Medical Decision Narrative: This 38-year-old female no relevant medical history presenting with abdominal pain. Patient states that her abdominal pain started about 2 weeks prior to this. On and off. She states that it feels like something is moving across my stomach. Starts in her epigastrium, moved to her left upper quadrant. Not associated with vomiting, diarrhea, constipation, fevers, chills, urinary symptoms, abnormal vaginal discharge or bleeding, or any other concerns. She has tried Tylenol and stomach medicine, to help, nothing in particular has. Able to tolerate p.o. intake without issue. Came in for further evaluation given duration of symptoms. History obtained with patient. On arrival, patient very well-appearing. She is hemodynamically stable, GCS 15, ambulatory without issue. Abdomen is soft, nontender, nondistended. No flank tenderness. No overlying skin changes. No distention. Overall unremarkable physical exam. Differential includes PUD, gastritis, enteritis, gastroenteritis, pancreatitis, SBO, colitis, diverticulitis, nephrolithiasis, UTI, , cholecystitis, choledocholithiasis, appendicitis, hepatitis, torsion, aortic pathology, mesenteric ischemia among others. Prior to laboratory evaluation and disposition, care handed off to oncoming physician. [employer] Machine Operator disclaimer Much of this encounter note is an electronic hall clerk spoken language to printed text. Electronic hall clerk of the spoken language may permit errors. Although I have reviewed the note, some errors may still exist. Navas: Upon my assumption of care patient is stable, resting comfortably. She does not have any abdominal pain, benign abdominal exam. She described the discomfort as phantom kicking though she states she knows she is not . Patient is currently on her period. Labs reviewed demonstrating trace leukocytosis, no anemia, platelets normal, CMP nonactionable, no findings of kidney dysfunction, normal electrolytes, lipase normal, test negative, UA negative for findings of infection. RBCs are present in the urine but this is explained by patient currently on her period. On reassessment patient continues to be stable and is appropriate for discharge at this time. I gave her instructions for continued symptomatic monitoring and management, follow-up instructions with her PCP, and return precautions for the ER. She indicated understanding and the patient was discharged in stable condition. Critical Care <Antoine Rojas MD - Last Filed: 05/08/24 22:56> Critical Care Time Critical Care Time: No
[2024-05-08 23:00] LABS: Albumin Level 4.6 g/dl (3.5-5.0); Basophils # 0.2 K/mm3 (0-0.2); Basophils % 1.3 % (0.1-2.0); Chloride 105 mmol/L (98-107); Eosinophils # 0.6 K/mm3 (0.0-0.4); Eosinophils % 5.3 % (0.1-12.0); Hematocrit 38.7 % (37.0-47.0); Hemoglobin 13.7 g/dL (12.2-16.2); Lymphocytes # 3.5 K/mm3 (0.7-4.5); Lymphocytes % 30.9 % (10-50); Mean Corpuscular HGB Conc 35.5 g/dL (31.8-35.4); Mean Corpuscular Hemoglobin 32.3 pg (27.0-31.2); Mean Platelet Volume 8.3 fl (7.4-10.4); Monocytes # 0.5 K/mm3 (0.1-1.0); Monocytes % 4.7 % (1.7-9.3); Neutrophils # 6.5 K/mm3 (1.8-7.8); Neutrophils % 57.7 % (37.0-80.0); Platelet Count 279 K/mm3 (142-424); Red Blood Count 4.25 M/mm3 (4.20-5.40); Red Cell Distribution Width 13.2 % (11.5-17.5); White Blood Count 11.4 K/mm3 (4.8-10.8)
[2024-05-08 23:01] LABS: Potassium 3.7 mmoL/L (3.5-5.1); Sodium 137 mmol/L (136-145)
[2024-05-08 23:03] LABS: Alanine Aminotransferase 21 U/L (12-78); Albumin/Globulin Ratio 1.2 (1.1-1.8); Alkaline Phosphatase 60 U/L (38-126); Anion Gap 11.7 mEq/L (5-15); Aspartate Amino Transferase 26 U/L (14-36); Bilirubin,Total 0.4 mg/dl (0.2-1.3); Blood Urea Nitrogen 8 mg/dl (7-17); Carbon Dioxide 24 mmol/L (22.0-30.0); Creatinine Clearance Estimated 108 mL/min (50-200); Estimated Glomerular Filt Rate 93 ml/min (>60); GFR (African American) 113 ML/MIN (>60); Total Protein,Serum 8.6 g/dl (6.3-8.2)
[2024-05-08 23:04] LABS: Calcium 9.1 mg/dl (8.4-10.2); Glucose 90 mg/dl (74-100); Lipase 146 U/L (23-300)
[2024-05-08] MEDS: KETOROLAC 30MG/ML VIAL 15 MG IV (23:05)
[2024-05-08] MEDS: ALUMINUM/MAGNESIUM/SIMETHICONE 30ML UDC 30 ML PO (23:06)
[2024-05-08] MEDS: FAMOTIDINE 20MG/2ML VIAL 20 MG IV (23:06)
[2024-05-08 23:21] LABS: HCG,Quantitative < 2 mIU/ml (0-5.42)
[2024-05-08 23:40] LABS: Bilirubin,Urine Negative (Negative); Blood, Urine 3+ (Negative); Color,Urine YELLOW (Yellow); Glucose,Urine (UA) Negative (Negative); Ketones,Urine Negative (Negative); Leukocyte Esterase,Urine Negative (Negative); Microscopic, Urine URINE MICROSCOPIC (MICROSCOPIC); Nitrate,Urine Negative (Negative); Protein,Urine TRACE (Negative); Specific Gravity, Urine >= 1.030 (1.005-1.030); Urobilinogen,Urine 0.2 EU/dl (0.2)
[2024-05-08 23:41] LABS: Appearance,Urine Slightly Cloudy (Clear)
[2024-05-08 23:59] LABS: Bacteria,Urine Trace /lpf; RBC,Urine 20-50 #/hpf (0-3); Squamous Epithelial Cell,Urine Occasional #/hpf (0-5)
[2024-05-09 00:21] VITALS: BP 106/68; PULSE 61; RESP 16; TEMP 36.8; O2SAT 98
[2024-05-09 03:59] LABS: HIV (1&2) Antibody Rapid NONREACTIVE (NONREACTIVE)
[2024-05-11 05:09] LABS: HCV Ab Non Reactive (Non Reactive)
== END 2024-05-09 00:23 | disposition home or self-care (01) ==
PROVIDERS: Emergency Provider Emergency Medicine
DX: R10.9 Unspecified abdominal pain (principal)
CPT/HCPCS: 96374; 96375; 80053; 81001; 83690; 84702; 85025; 86803; 87389; 99283; J1885; S0028